=== PATIENT | female | born 1975 | race American Indian/Alaskan Native ===

== ENCOUNTER 2016-12-20 11:29 | Inpatient (IN) | payer SELFPAY ==
[2016-12-20 11:32] VITALS: BMI 19.1
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
[2016-12-20 12:26] LABS: ALB/GLOB RATIO 1.2 (1.0-2.1); ALCOHOL SERUM < 10 mg/dl (0-10); ALKALINE PHOSPHATASE 61 U/L (38-126); ALT/SGPT 24 U/L (9-52); AST/SGOT 22 U/L (14-36); BILIRUBIN,TOTAL 0.6 mg/dl (0.2-1.3); BLOOD UREA NITROGEN 8 mg/dl (7-17); CALCIUM 9.2 mg/dL (8.4-10.2); CARBON DIOXIDE 21 mmol/L (22-30); CHLORIDE 107 mmol/L (98-107); GFR AFRICAN-AMERICAN > 60; GLUCOSE,RANDOM 121 mg/dL (65-105); POTASSIUM 3.7 MMOL/L (3.6-5.0); SODIUM 140 mmol/l (132-148); TOTAL PROTEIN 8.7 G/DL (6.3-8.2)
[2016-12-20 12:30] LABS: BASO % 0.6 % (0.0-2.0); EOS % 0.4 % (0.0-4.0); HEMATOCRIT 43.4 % (34.0-47.0); LYMPH # 1.4 K/uL (1.0-4.3); LYMPH % 26.9 % (20.0-40.0); MEAN CELL VOLUME 80.4 fl (81.0-99.0); MEAN CORPUSCULAR HEMOGLOBIN 25.3 pg (27.0-31.0); MEAN CORPUSCULAR HGB CONC 31.4 g/dL (33.0-37.0); MEAN PLATELET VOLUME 7.9 fl (7.2-11.7); MONO # 0.5 K/uL (0.0-0.8); MONO % 9.5 % (0.0-10.0); NEUT # 3.3 K/uL (1.8-7.0); NEUT % 62.6 % (50.0-75.0); NRBC % 0.1 % (0.0-0.0); WHITE BLOOD COUNT 5.3 K/uL (4.8-10.8)
[2016-12-20 13:32] LABS: RBC URINE 3 /hpf (0-3); URINE BACTERIA RARE (<OCC); URINE BILIRUBIN NEGATIVE (NEGATIVE); URINE BLOOD NEGATIVE (NEGATIVE); URINE COLOR YELLOW (YELLOW); URINE GLUCOSE (UA) NEG (Normal); URINE KETONE NEGATIVE (NEGATIVE); URINE LEUKOCYTE ESTERASE NEG Leu/uL (Negative); URINE PROTEIN NEGATIVE (NEGATIVE); URINE UROBILINOGEN 0.2-1.0 mg/dL (0.2-1.0); WBC URINE 2 /hpf (0-5)
[2016-12-20] MEDS ORDERED: Alum-Mag Hydrox-Simethicone Susp (30 mL) PO PRN (15:49)
[2016-12-20] MEDS ORDERED: Magnesium Hydroxide Susp 30 ml UD PO PRN (15:49)
--- NOTE | 2016-12-20 15:54 | RAD ---
HISTORY: clearance COMPARISON: No prior. FINDINGS: LUNGS: No active pulmonary disease. PLEURA: No significant pleural effusion identified, no pneumothorax apparent. CARDIOVASCULAR: Normal. OSSEOUS STRUCTURES: No significant abnormalities. VISUALIZED UPPER ABDOMEN: Normal. OTHER FINDINGS: None. IMPRESSION: No active disease.
[2016-12-20] MEDS ORDERED: DiphenhydrAMINE 50 mg/ml Inj IM PRN (15:57)
[2016-12-21 08:55] LABS: BASO # 0.1 K/uL (0.0-0.2); BASO % 1.4 % (0.0-2.0); EOS # 0.1 K/uL (0.0-0.7); EOS % 1.1 % (0.0-4.0); HEMATOCRIT 43.1 % (34.0-47.0); LYMPH # 2.7 K/uL (1.0-4.3); MEAN CELL VOLUME 80.4 fl (81.0-99.0); MEAN CORPUSCULAR HEMOGLOBIN 25.6 pg (27.0-31.0); MEAN CORPUSCULAR HGB CONC 31.8 g/dL (33.0-37.0); MEAN PLATELET VOLUME 7.6 fl (7.2-11.7); MONO # 0.6 K/uL (0.0-0.8); MONO % 10.8 % (0.0-10.0); NEUT # 2.5 K/uL (1.8-7.0); NEUT % 41.7 % (50.0-75.0); NRBC % 0.1 % (0.0-0.0); RED CELL DISTRIBUTION WIDTH 15.1 % (11.5-14.5)
[2016-12-21 09:16] LABS: ALB/GLOB RATIO 1.2 (1.0-2.1); ALKALINE PHOSPHATASE 58 U/L (38-126); ALT/SGPT 28 U/L (9-52); AST/SGOT 19 U/L (14-36); BILIRUBIN,TOTAL 0.8 mg/dl (0.2-1.3); BLOOD UREA NITROGEN 10 mg/dl (7-17); CALCIUM 9.3 mg/dL (8.4-10.2); CARBON DIOXIDE 26 mmol/L (22-30); CHLORIDE 106 mmol/L (98-107); GFR AFRICAN-AMERICAN > 60; GLUCOSE,RANDOM 95 mg/dL (65-105); POTASSIUM 4.1 MMOL/L (3.6-5.0); SODIUM 142 mmol/l (132-148); TOTAL PROTEIN 8.2 G/DL (6.3-8.2)
[2016-12-21 09:29] LABS: T4 9.43 ug/dl (5.5-11.0)
[2016-12-21 09:42] LABS: THYROID STIMULATING HORMONE 0.76 mIU/ML (0.46-4.68)
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
[2016-12-22 07:19] LABS: IRON 66 ug/dL (37-170)
--- NOTE | 2016-12-22 09:05 | CARD ---
APPROVED REPORT EKG Measurement Heart [id number] <Conclusion> Normal sinus rhythm with sinus arrhythmia Incomplete RBBB Abnormal ECG
--- NOTE | 2016-12-22 12:32 | PCM.PYCHPN ---
Psychiatric Progress Note - Psychiatric Progress Note Patient seen today, length of contact: discussed with team Patient Chief Complaint: i'm gonna come back here for you all Problems Identified/Issues Discussed: pt refused to come into treatment team today. she is refusing medications. pt c/ o menstrual pain and demanding naproxen and tampons from the team members. pt was denying that she had suicidal thoughts. the team came to the patient's room and stated she was to be discharged as she was refusing medications, refusing to come to treatment and not having thoughts to harm self. pt started cursing at this tech writer and the RN, stating she would call the housekeeping staff and "i'll be back in here." she also started threatening to harm staff and was smearing menstrual blood over the bathroom bucnker and buckner of the quiet room. pt refused to leave the hospital. pt then started screaming that she was going to kill herself and that nobody cares about her. Medication Change: Yes Medical Record Reviewed: Yes Mental Status Examination - Cognitive Function Orientation: Person, Place, Situation, Time Memory: Intact Attention: WNL Concentration: WNL Association: WN Fund of Knowledge: [facility] Decription of patient's judgement and insights: pt seems to be in control of her behaviors when she is told she is staying in the hospital; but at this time she may be unpredictable - Mood Mood: Depressed, Other (angry) - Affect Affect: Other (Labile, Histrionic) - Speech Speech: Loud (cursing, threatening) - Formal Thought Process Formal Thought Process: No Impairment Psychotic Thoughts and Behaviors: denies a/v hallucinations - Suicidal Ideation Suicidal Ideation: Yes Plan: when told she was being discharged pt reported suicidal thoughts with plans - Homicidal Ideation Homicidal Ideation: Yes Plan: threats to harm the treatment team members Goal/Treatment Plan - Goal/Treatment Plan Need for Continued Stay: Remain at risks for inpatient hospitalization, Severe functional impairment Progress Toward Problem(s) and Goals/Treatment Plan: bipolar disorder pcp abuse alcohol abuse cannabis abuse pt will be screened for involuntary hospitalization and placed on a 1:1 supervision for safety of staff and other patients as pt's behavior is erratic and threatening. will start on mood stabilizing medications and an antipsychotic- however pt has been refusing medications. Estimated Date of D/C: 12/23/16
[2016-12-22 15:14] LABS: CHOLESTEROL 172 mg/dL (0-199)
[2016-12-22] MEDS: Divalproex 125 mg DR (BID formulation) PO SCH (22:50)
[2016-12-23 01:21] VITALS: O2SAT 98
[2016-12-23] MEDS: Risperidone M tab 1 MG PO SCH (09:24)
[2016-12-23] MEDS: Divalproex 125 mg DR (BID formulation) PO SCH ×2 (09:24→16:46)
--- NOTE | 2016-12-23 10:00 | PCM.PYCHPN ---
Psychiatric Progress Note - Psychiatric Progress Note Patient seen today, length of contact: discussed with team Patient Chief Complaint: i'm not talking to you Problems Identified/Issues Discussed: pt at the nursing station, making demands. she is loud and states she won't talk to this doctor because "your the reason i acted out yesterday!" pt spread her menstural blood over the quiet room door. she also threatened to "reach down in my panties and do that again if you keep talking to me" she was observed in the dining room talking to another pt by the rn and making threats to act up again if attempts are made to discharge her. she is also blaming the treatment team for not "telling me my sister was here yesterday" (this was when pt was screaming and spreading blood on the unit.) Medication Change: Yes Medical Record Reviewed: Yes Mental Status Examination - Cognitive Function Orientation: Person, Place, Situation, Time Memory: Intact Attention: WNL Concentration: WNL Association: WNL Fund of Knowledge: WN Decription of patient's judgement and insights: pt has control over her behaviors and is making threats to "lose control" - Mood Mood: Depressed, Other (angry) - Affect Affect: Other (Labile, Histrionic) - Speech Speech: Loud (cursing, threatening) - Formal Thought Process Formal Thought Process: No Impairment Psychotic Thoughts and Behaviors: denies a/v hallucinations - Suicidal Ideation Suicidal Ideation: Yes Plan: makes suicidal threats in context of being discharged - Homicidal Ideation Homicidal Ideation: Yes Plan: makes homicidal threats in context of discharge Goal/Treatment Plan - Goal/Treatment Plan Need for Continued Stay: Remain at risks for inpatient hospitalization, Severe functional impairment Progress Toward Problem(s) and Goals/Treatment Plan: bipolar disorder pcp abuse alcohol abuse cannabis abuse pt will be screened for involuntary hospitalization as she is refusing to allow the team to assess her, threatening to harm staff and the treating md, is intimidating the other patients and disrupting treatment of voluntary patients. . continue to treat with risperdal and depakote Estimated Date of D/C: 12/23/16
[2016-12-23 16:30] VITALS: RESP 18
[2016-12-24] MEDS: Divalproex 125 mg DR (BID formulation) PO SCH ×2 (08:47→16:32)
[2016-12-24] MEDS: Risperidone M tab 1 MG PO SCH (08:48)
--- NOTE | 2016-12-24 11:03 | PCM.PYCHPN ---
Psychiatric Progress Note - Psychiatric Progress Note Patient seen today, length of contact: Patient evaluated, case discussed with team, chart reviewed Patient Chief Complaint: "I'm a good person" Problems Identified/Issues Discussed: Patient was calm and cooperative during the interview. She seemed most concerned with her housing situation upon discharge and gaining access to her phone to call people she knows. She minimizes her past inappropriate aggressive behaviors on the unit, blaming staff members for her behaviors, feeling that her behaviors were justified. She seems to want to split staff, saying "X" person said this to me and that's why I did what I did, and then stating that the staff currently talking to her are so kind and helpful. Patient has poor insight that her behaviors are likely personality driven, voluntary actions due to poor coping strategies. Lcsw attempted to discuss the limitations of what we can help her with on an inpatient unit and that we can not fix all of the problems in her life, including permanent housing and her poor social supports (who also abuse drugs). She reports that her mood is improving and requested that the MD speak to her after she has eaten meals, so that she is less cranky. No paranoia/delusions/SI/HI. Medication Change: No Medical Record Reviewed: Yes Mental Status Examination - Cognitive Function Orientation: Person, Place, Situation, Time Memory: Intact Attention: WNL Concentration: WNL Association: WNL Fund of Knowledge: WN Decription of patient's judgement and insights: Poor insight/ fair judgment - Mood Mood: Depressed, Other (Labile) - Affect Affect: Other (Labile, Histrionic, Attention Seeking) - Speech Speech: Appropriate - Formal Thought Process Formal Thought Process: No Impairment Psychotic Thoughts and Behaviors: No AH/VH/paranoia - Suicidal Ideation Suicidal Ideation: No - Homicidal Ideation Homicidal Ideation: No Goal/Treatment Plan - Goal/Treatment Plan Need for Continued Stay: Remain at risks for inpatient hospitalization, Severe functional impairment Progress Toward Problem(s) and Goals/Treatment Plan: 41 yo female w/ PCP/ETOH/Marijuana abuse, bipolar disorder vs substance induced mood disorder, r/o borderline personality disorder. -Continue Depakote 375 mg PO BID, Check VPA level on Thursday -Continue Risperdal 1 mg PO Daily -Trazodone 50 mg PO HS -Individual, group and milieu tx Estimated Date of D/C: 12/26/16
[2016-12-25] MEDS: Risperidone M tab 1 MG PO SCH (09:00)
[2016-12-25] MEDS ORDERED: Divalproex 125 mg DR (BID formulation) PO ONE (09:00)
[2016-12-25] MEDS ORDERED: Risperidone M tab 1 MG PO ONE (09:00)
[2016-12-25] MEDS: Divalproex 125 mg DR (BID formulation) PO SCH ×2 (09:00→17:00)
[2016-12-25 20:06] VITALS: BP 97/63; PULSE 77; TEMP 97.5
[2016-12-26 07:59] LABS: CHOLESTEROL 155 mg/dL (0-199)
[2016-12-26] MEDS: Divalproex 125 mg DR (BID formulation) PO SCH (09:22)
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
== END 2016-12-26 12:14 | disposition home or self-care (01) | DRG 885 ==
LOC: H.ER 11:29 → H.ERHOLD 14:04 → H.PSYCH 15:20
PROVIDERS: ADMIT Psychiatry & Neurology Psychiatry; ATTEND Psychiatry & Neurology Psychiatry
PROC: GZHZZZZ Group Psychotherapy (ICD-10-PCS; principal; 2016-12-20)
DX: F39 Unspecified mood [affective] disorder (principal); R45.851 Suicidal ideations; R45.850 Homicidal ideations; F16.10 Hallucinogen abuse, uncomplicated; D50.9 Iron deficiency anemia, unspecified; F60.3 Borderline personality disorder; F10.10 Alcohol abuse, uncomplicated; Y90.0 Blood alcohol level of less than 20 mg/100 ml; F12.10 Cannabis abuse, uncomplicated; Z59.0 Homelessness; F60.2 Antisocial personality disorder; G89.29 Other chronic pain